=== PATIENT | male | born 1955 | race Caucasian/White ===

== ENCOUNTER 2023-08-03 04:45 | Emergency (ER) | payer OTHER, SELFPAY ==
[2023-08-03 05:05] VITALS: BP 179/102; PULSE 80; RESP 20; TEMP 36.6; O2SAT 96; BMI 30.7
--- NOTE | 2023-08-03 05:12 | CTR_ITS ---
PROCEDURE INFORMATION: Exam: CT Abdomen And Pelvis Without Contrast Exam date and time: 08/03/2023 5:23 AM Age: 67 years old Clinical indication: Abdominal pain; Localized; Right lower quadrant (rlq); Prior surgery; Surgery date: 6+ months; Surgery type: Prostate bx, HX of prostate cancer; Additional info: Right flank pain, HX of stones TECHNIQUE: Imaging protocol: Computed tomography of the abdomen and pelvis without contrast. Radiation optimization: All CT scans at this facility use at least one of these dose optimization techniques: automated exposure control; mA and/or kV adjustment per patient size (includes targeted exams where dose is matched to clinical indication); or iterative reconstruction. REPORTING DATA: Count of CT and Cardiac NM exams in prior 12 months: This patient has received 0 known CTs and 0 known cardiac nuclear medicine studies in the 12 months prior to the current study. COMPARISON: No relevant prior studies available. RADIATION DOSE METRICS: Total DLP (mGy-cm): 963.56 FINDINGS: Lungs: Lung bases are clear. Liver: Liver demonstrates multiple tiny coarse calcifications, likely secondary to prior granulomatous disease. Gallbladder and bile ducts: The gallbladder is unremarkable. No biliary ductal dilatation. Pancreas: The pancreas is unremarkable. Spleen: Scattered tiny calcifications about the spleen, likely secondary to prior granulomatous disease. Adrenal glands: The adrenal glands are unremarkable. Kidneys and ureters: There is a 0.2 cm obstructing ureterolith located at the right ureterovesicular junction (axial series 3, image 208). Mild right hydroureter. No significant hydronephrosis. Right kidney demonstrates multiple punctate nonobstructing nephroliths. Right kidney demonstrates moderate surrounding perinephric stranding, asymmetrically increased with respect of the left, raising concern for potential pyelonephritis. Left kidney demonstrates mild nonspecific perinephric stranding. No internal stones. No hydroureter or hydronephrosis. Stomach and bowel: Colonic diverticulosis without CT evidence of acute diverticulitis. Appendix: No evidence of appendicitis. Intraperitoneal space: Unremarkable. No free air. No significant fluid collection. Vasculature: Mild scattered calcific disease of the aorta and its major branches. Lymph nodes: No suspicious lymphadenopathy. Urinary bladder: Urinary bladder is normal. Reproductive: Metallic beads noted within the prostate. Bones/joints: Mild multilevel spondylosis. No acute osseous findings. No suspicious lytic or blastic osseous lesions. Soft tissues: Small fat containing left inguinal hernia. The superficial soft tissues are otherwise within normal limits. CT/CT abdomen pelvis wo con [id number] IMPRESSION: 1. Obstructing ureterolith measuring 0.2 cm located at the right ureterovesicular junction. Mild right hydroureter. No significant hydronephrosis. 2. Right kidney demonstrates moderate surrounding perinephric stranding, asymmetrically increased with respect of the left, raising concern for potential pyelonephritis. 3. Multiple additional nonobstructing punctate right nephroliths.
--- NOTE | 2023-08-03 05:16 | ED_ITS ---
Documented by User: Sherif Trimble DO 08/03/23 05:18 HPI - Abdominal Pain General: Chief Complaint: Abdominal Pain Stated Complaint: Abdomin pain Time Seen by Provider: 08/03/23 04:48 History of Present Illness: Patient presents to the ER with sudden onset sharp stabbing right flank pain that radiates to his groin. Started at 3:00 this morning. Patient did urinate which did not change the pain. Patient has a history of kidney stones and prostate cancer. Patient has not had a kidney stone for about 10 years. Patient sees a urologist Dr. Perez in [place] about every 90 days for treatment of his prostate cancer. Patient states this pain is exactly the same as it was when he last had a kidney stone. Review of Systems General: Reports: 10 or more systems reviewed and unremarkable except in HPI and below Physical Exam Const: COMMON NORMALS: no acute distress, average body habitus, patient oriented x3, no limitations, healthy appearing, alert and well nourished HENMT: COMMON NORMALS: normocephalic, atraumatic, hearing grossly normal bilaterally, external ears normal, Normal external nose present and moist oral mucous membranes HEAD & SCALP: normocephalic and atraumatic NOSE: Normal external nose present EXTERNAL EAR: Yes external ears normal Neck/C-Spine: COMMON NORMALS: no JVD Chest: COMMONS NORMALS: normal inspection of the chest and normal palpation of entire chest wall Resp: COMMON NORMALS: normal respiratory effort, No retractions, No use of a ccessory muscles and clear to auscultation bilaterally AUSCULTATION: clear to auscultation bilaterally Cardio: COMMON NORMALS: no JVD, regular rate, regular rhythm, S1 normal heart sound present, S2 normal heart sound present, No gallops present (Cardio), No clicks present (Cardio), No murmurs present (Cardio) and No rub (Cardio) RATE: regular rate RHYTHM: regular rhythm HEART SOUNDS: S1 normal heart sound present and S2 normal heart sound present GI: COMMON NORMALS: Normal to inspection, nondistended, normoactive bowel sounds present, Soft to palpation, non-tender, No hepatosplenomegaly present, no masses and no bruits PALPATION: Yes Soft to palpation and Yes No hepatosplenomegaly present : COMMON NORMALS: No no CVA tenderness (Right CVA tenderness) BLADDER/KIDNEY EXAM: No no CVA tenderness (Right CVA tenderness) Back/Pelvis: COMMON NORMALS: negative for no CVA tenderness (Right CVA tenderness) Neuro: COMMON NORMALS: patient oriented x3 SENSORIUM/ORIENTATION: Yes alert Course Vital Signs: Vital signs: Vital Signs Temperature 98 F 08/03/23 05:05 Pulse Rate 80 08/03/23 05:05 Respiratory Rate 20 H 08/03/23 05:05 Blood Pressure 179/102 08/03/23 05:05 Pulse Oximetry 96 08/03/23 05:05 MDM - Abdominal Pain Differential Diagnosis Likely calculus of kidney; Unlikely abdominal pain, acute appendicitis, constipation, diverticulitis, endometriosis, gastroenteritis, pancreatitis or small bowel obstruction Medical Records I reviewed the patient's medical records. Lab Data I reviewed the patient's lab results. 08/03/23 05:16 08/03/23 05:16 Labs/Radiology: Radiology Impressions Abdomen/Pelvis CT 08/03/23 05:12 IMPRESSION: 1. Obstructing ureterolith measuring 0.2 cm located at the right ureterovesicular junction. Mild right hydroureter. No significant hydronephrosis. 2. Right kidney demonstrates moderate surrounding perinephric stranding, asymmetrically increased with respect of the left, raising concern for potential pyelonephritis. 3. Multiple additional nonobstructing punctate right nephroliths. Laboratory Results WBC 8.45 10^3/uL (3.29-11.43) 08/03/23 05:16 RBC 4.21 10^6/uL (3.85-5.65) 08/03/23 05:16 Hgb 13.30 g/dL (11.27-16.99) 08/03/23 05:16 Hct 40.3 % (37-53) 08/03/23 05:16 MCV 95.7 fl (82-101) 08/03/23 05:16 MCH 31.6 pg (27-33) 08/03/23 05:16 MCHC 33.0 g/dL (30-55) 08/03/23 05:16 RDW 13.4 % (12.1-15.1) 08/03/23 05:16 Plt Count 229 10^3/cmm (157-399) 08/03/23 05:16 MPV 10.0 fL (7.4-10.4) 08/03/23 05:16 Neut % (Auto) 60.0 % 08/03/23 05:16 Lymph % (Auto) 23.0 % 08/03/23 05:16 [place] % (Auto) 10.4 % 08/03/23 05:16 Eos % (Auto) 5.2 % 08/03/23 05:16 Baso % (Auto) 0.8 % 08/03/23 05:16 Neut # (Auto) 5.07 10^3/uL (1.8-7.7) 08/03/23 05:16 Lymph # (Auto) 1.9 10^3/uL (0.8-4.8) 08/03/23 05:16 [place] # (Auto) 0.9 10^3/uL (0.2-0.9) 08/03/23 05:16 Eos # (Auto) 0.4 10^3/uL (0.0-0.8) 08/03/23 05:16 Baso # (Auto) 0.1 10^3/uL (0.0-0.1) 08/03/23 05:16 Nucleated RBC % (auto) 0 % 08/03/23 05:16 Nucleated RBCs # 0.0 /100WBC 08/03/23 05:16 Sodium 139 mmol/L (136-145) 08/03/23 05:16 Potassium 4.1 mmol/L (3.5-5.1) 08/03/23 05:16 Chloride 104 mmol/L (98-107) 08/03/23 05:16 Carbon Dioxide 24 mmol/L (22-29) 08/03/23 05:16 Anion Gap 15.1 (5-19) 08/03/23 05:16 BUN 23 mg/dL (8-23) 08/03/23 05:16 Creatinine 1.2 mg/dL (0.7-1.2) 08/03/23 05:16 GFR Calculation 60.0 mL/min (90-130) L 08/03/23 05:16 Glucose 175 mg/dL (65-115) H 08/03/23 05:16 Calculated Osmolality 296 mOsm/kg (285-295) H 08/03/23 05:16 Calcium 9.2 mg/dL (8.5-10.5) 08/03/23 05:16 Total Bilirubin 0.3 mg/dL (0.15-1.2) 08/03/23 05:16 AST 16 U/L (0-40) 08/03/23 05:16 ALT 20 U/L (0-41) 08/03/23 05:16 Alkaline Phosphatase 103 U/L (40-130) 08/03/23 05:16 Total Protein 6.7 g/dL (6.6-8.7) 08/03/23 05:16 Albumin 3.9 g/dL (3.5-5.2) 08/03/23 05:16 Globulin 2.8 g/dL (1.3-4.6) 08/03/23 05:16 Urine Color Yellow (Yellow) 08/03/23 06:15 Urine Appearance Clear (CLEAR) 08/03/23 06:15 Urine pH 5 (5-7) 08/03/23 06:15 Ur Specific [place] 1.020 (1.005-1.030) 08/03/23 06:15 Urine Protein Neg (Negative) 08/03/23 06:15 Urine Glucose (UA) 2+ (Normal) H 08/03/23 06:15 Urine Ketones 1+ (Negative) H 08/03/23 06:15 Urine Blood 2+ (Negative) H 08/03/23 06:15 Urine Nitrate Negative (Negative) 08/03/23 06:15 Urine Bilirubin Neg (Negative) 08/03/23 06:15 Urine Urobilinogen Norm mg/dL (Negative) 08/03/23 06:15 Ur Leukocyte Esterase Negative (Negative) 08/03/23 06:15 Urine RBC 0-4 /hpf (0-2) H 08/03/23 06:15 Urine WBC 0-4 /hpf (0-5) H 08/03/23 06:15 Ur Squamous Epith Cells 0-4 /hpf (0-5) H 08/03/23 06:15 Amorphous Sediment Not Reportable 08/03/23 06:15 Urine Bacteria Trace /hpf (NONE) 08/03/23 06:15 Discharge Plan Discharge Patient Disposition: Home Clinical Impression: Kidney stone Condition: Stable Prescriptions: New hydrocodone-acetaminophen 5-325 mg tablet 1 tab PO Q6H PRN (Reason: pain) Qty: 14 0RF ondansetron 4 mg tablet,disintegrating 4 mg PO Q6H PRN (Reason: nausea and vomiting) Qty: 14 0RF Discharge Orders: Discharge ED (Routine); Ordered 08/03/23 Ordered By: Carter Cordova Discharge Diet: Advance as tolerated Discharge Activity: Resume usual activity Patient Instructions: Kidney Stones (ED), Opioid Safety Coding Level of Care Code ED [employer] Supervisor for Chg Fwd Documented by User: Carter Cordova MD 08/03/23 07:16 HPI - Abdominal Pain General: Chief Complaint: Abdominal Pain Stated Complaint: Abdomin pain Time Seen by Provider: 08/03/23 04:48 Course Vital Signs: Vital signs: Vital Signs Temperature 98 F 08/03/23 05:05 Pulse Rate 80 08/03/23 05:05 Respiratory Rate 20 H 08/03/23 05:05 Blood Pressure 179/102 08/03/23 05:05 Pulse Oximetry 96 08/03/23 05:05 MDM - Abdominal Pain Medical Decision Making Patient presents here with flank pain CT does show a kidney stone he is currently pain-free kidney stone is small should pass on its own. We will prescribe him pain meds he is to follow-up with his physician in [place]. Return if worsening he understands agrees to plan Lab Data 08/03/23 05:16 08/03/23 05:16 Labs/Radiology: Radiology Impressions Abdomen/Pelvis CT 08/03/23 05:12 IMPRESSION: 1. Obstructing ureterolith measuring 0.2 cm located at the right ureterovesicular junction. Mild right hydroureter. No significant hydronephrosis. 2. Right kidney demonstrates moderate surrounding perinephric stranding, asymmetrically increased with respect of the left, raising concern for potential pyelonephritis. 3. Multiple additional nonobstructing punctate right nephroliths. Laboratory Results WBC 8.45 10^3/uL (3.29-11.43) 08/03/23 05:16 RBC 4.21 10^6/uL (3.85-5.65) 08/03/23 05:16 Hgb 13.30 g/dL (11.27-16.99) 08/03/23 05:16 Hct 40.3 % (37-53) 08/03/23 05:16 MCV 95.7 fl (82-101) 08/03/23 05:16 MCH 31.6 pg (27-33) 08/03/23 05:16 MCHC 33.0 g/dL (30-55) 08/03/23 05:16 RDW 13.4 % (12.1-15.1) 08/03/23 05:16 Plt Count 229 10^3/cmm (157-399) 08/03/23 05:16 MPV 10.0 fL (7.4-10.4) 08/03/23 05:16 Neut % (Auto) 60.0 % 08/03/23 05:16 Lymph % (Auto) 23.0 % 08/03/23 05:16 [place] % (Auto) 10.4 % 08/03/23 05:16 Eos % (Auto) 5.2 % 08/03/23 05:16 Baso % (Auto) 0.8 % 08/03/23 05:16 Neut # (Auto) 5.07 10^3/uL (1.8-7.7) 08/03/23 05:16 Lymph # (Auto) 1.9 10^3/uL (0.8-4.8) 08/03/23 05:16 [place] # (Auto) 0.9 10^3/uL (0.2-0.9) 08/03/23 05:16 Eos # (Auto) 0.4 10^3/uL (0.0-0.8) 08/03/23 05:16 Baso # (Auto) 0.1 10^3/uL (0.0-0.1) 08/03/23 05:16 Nucleated RBC % (auto) 0 % 08/03/23 05:16 Nucleated RBCs # 0.0 /100WBC 08/03/23 05:16 Sodium 139 mmol/L (136-145) 08/03/23 05:16 Potassium 4.1 mmol/L (3.5-5.1) 08/03/23 05:16 Chloride 104 mmol/L (98-107) 08/03/23 05:16 Carbon Dioxide 24 mmol/L (22-29) 08/03/23 05:16 Anion Gap 15.1 (5-19) 08/03/23 05:16 BUN 23 mg/dL (8-23) 08/03/23 05:16 Creatinine 1.2 mg/dL (0.7-1.2) 08/03/23 05:16 GFR Calculation 60.0 mL/min (90-130) L 08/03/23 05:16 Glucose 175 mg/dL (65-115) H 08/03/23 05:16 Calculated Osmolality 296 mOsm/kg (285-295) H 08/03/23 05:16 Calcium 9.2 mg/dL (8.5-10.5) 08/03/23 05:16 Total Bilirubin 0.3 mg/dL (0.15-1.2) 08/03/23 05:16 AST 16 U/L (0-40) 08/03/23 05:16 ALT 20 U/L (0-41) 08/03/23 05:16 Alkaline Phosphatase 103 U/L (40-130) 08/03/23 05:16 Total Protein 6.7 g/dL (6.6-8.7) 08/03/23 05:16 Albumin 3.9 g/dL (3.5-5.2) 08/03/23 05:16 Globulin 2.8 g/dL (1.3-4.6) 08/03/23 05:16 Urine Color Yellow (Yellow) 08/03/23 06:15 Urine Appearance Clear (CLEAR) 08/03/23 06:15 Urine pH 5 (5-7) 08/03/23 06:15 Ur Specific [place] 1.020 (1.005-1.030) 08/03/23 06:15 Urine Protein Neg (Negative) 08/03/23 06:15 Urine Glucose (UA) 2+ (Normal) H 08/03/23 06:15 Urine Ketones 1+ (Negative) H 08/03/23 06:15 Urine Blood 2+ (Negative) H 08/03/23 06:15 Urine Nitrate Negative (Negative) 08/03/23 06:15 Urine Bilirubin Neg (Negative) 08/03/23 06:15 Urine Urobilinogen Norm mg/dL (Negative) 08/03/23 06:15 Ur Leukocyte Esterase Negative (Negative) 08/03/23 06:15 Urine RBC 0-4 /hpf (0-2) H 08/03/23 06:15 Urine WBC 0-4 /hpf (0-5) H 08/03/23 06:15 Ur Squamous Epith Cells 0-4 /hpf (0-5) H 08/03/23 06:15 Amorphous Sediment Not Reportable 08/03/23 06:15 Urine Bacteria Trace /hpf (NONE) 08/03/23 06:15 All radiology interpretation(s) finalized by discharge Discharge Plan Discharge Patient Disposition: Home Clinical Impression: Kidney stone Condition: Stable Prescriptions: New hydrocodone-acetaminophen 5-325 mg tablet 1 tab PO Q6H PRN (Reason: pain) Qty: 14 0RF ondansetron 4 mg tablet,disintegrating 4 mg PO Q6H PRN (Reason: nausea and vomiting) Qty: 14 0RF Discharge Orders: Discharge ED (Routine); Ordered 08/03/23 Ordered By: Carter Cordova Discharge Diet: Advance as tolerated Discharge Activity: Resume usual activity Patient Instructions: Kidney Stones (ED), Opioid Safety Coding Level of Care Code ED [employer] Supervisor for Mannie Servin
[2023-08-03 05:19] LABS: Basophils # 0.1 10^3/uL (0.0-0.1); Basophils % 0.8 %; Eosinophils # 0.4 10^3/uL (0.0-0.8); Eosinophils % 5.2 %; Hematocrit 40.3 % (37-53); Lymphocytes # 1.9 10^3/uL (0.8-4.8); Mean Corpuscular Hemoglobin 31.6 pg (27-33); Mean Corpuscular Volume 95.7 fl (82-101); Monocytes # 0.9 10^3/uL (0.2-0.9); Monocytes % 10.4 %; Neutrophils # 5.07 10^3/uL (1.8-7.7); Nucleated Red Blood Cells % 0 %; Platelet Count 229 10^3/cmm (157-399); Red Blood Count 4.21 10^6/uL (3.85-5.65); Red Cell Distribution Width 13.4 % (12.1-15.1); White Blood Count 8.45 10^3/uL (3.29-11.43)
[2023-08-03] MEDS: ketorolac 30 mg/mL INJ IVP (05:23)
[2023-08-03] MEDS: sodium chloride 0.9% 1,000 ML 999 ML IV (05:23)
[2023-08-03 05:39] LABS: Alanine Aminotransferase 20 U/L (0-41); Albumin Level 3.9 g/dL (3.5-5.2); Alkaline Phosphatase 103 U/L (40-130); Anion Gap 15.1 (5-19); Aspartate Amino Transferase 16 U/L (0-40); Blood Urea Nitrogen 23 mg/dL (8-23); Calcium 9.2 mg/dL (8.5-10.5); Carbon Dioxide 24 mmol/L (22-29); Chloride 104 mmol/L (98-107); Globulin 2.8 g/dL (1.3-4.6); Glucose 175 mg/dL (65-115); Osmolality Calculated 296 mOsm/kg (285-295); Potassium 4.1 mmol/L (3.5-5.1); Sodium 139 mmol/L (136-145); Total Bilirubin 0.3 mg/dL (0.15-1.2); Total Protein 6.7 g/dL (6.6-8.7)
[2023-08-03 06:58] LABS: Add Urine Microscopic? YES; Bilirubin Urine Neg (Negative); Blood Urine 2+ (Negative); Glucose Urine UA 2+ (Normal); Ketones Urine 1+ (Negative); Leukocyte Esterase Urine Negative (Negative); Nitrate Urine Negative (Negative); Protein Urine Neg (Negative); RBC Urine 0-4 /hpf (0-2); Squamous Epithelial Cell Urine 0-4 /hpf (0-5); Urine Appearance Clear (CLEAR); Urine Color Yellow (Yellow); Urobilinogen Urine Norm (Negative); WBC Urine 0-4 /hpf (0-5); pH Urine 5 (5-7)
[2023-08-03 06:59] LABS: Add Urine Culture? No; Bacteria Urine TRACE /hpf
[2023-08-03 07:23] VITALS: BP 139/85; PULSE 86; RESP 18; O2SAT 94
== END 2023-08-03 07:24 | disposition home or self-care (01) ==
PROVIDERS: Emergency Medicine; Emergency Provider Emergency Medicine
DX: N13.4 Hydroureter (principal); N20.2 Calculus of kidney with calculus of ureter
CPT/HCPCS: 36415; 74176; 80053; 81001; 85025; 96374; 99285; J1885; J7030